=== PATIENT | female | born 1980 | race African-American/Black ===

== ENCOUNTER 2016-08-27 11:18 | Observation (INO) | payer MEDICAID, OTHER ==
[~2016-08-27] VITALS: Ht 165.1 cm; Wt 59.0 kg
[2016-08-27] MEDS ORDERED: KETOROLAC 60 MG/2 ML VIAL IM ONE (12:37)
[2016-08-27] MEDS ORDERED: ONDANSETRON ODT 4 MG TAB ONE (12:37)
[2016-08-27] MEDS ORDERED: ONDANSETRON 4 MG VIAL ONE (13:48)
[2016-08-27] MEDS ORDERED: OPTIRAY 350 100 ML VIAL HMH IV ONE (15:07)
[2016-08-27] MEDS: KCL CR 10 MEQ CAP PO ONE ×2 (15:10→20:54)
[2016-08-27] MEDS ORDERED: SALINE FLUSH 10 ML FLUSH PRN (15:10)
[2016-08-27] MEDS ORDERED: ACETAMINOPHEN 500 MG TAB PO PRN (15:10)
[2016-08-27] MEDS ORDERED: OXYCODONE 5 MG TAB PO PRN (15:10)
[2016-08-27] MEDS ORDERED: ONDANSETRON 4 MG VIAL IV PUSH PRN (15:10)
[2016-08-27 17:25] VITALS: Ht 165.1 cm; Wt 59.0 kg
[2016-08-27 17:26] VITALS: BP_SYST 180; RESP 20; TEMP 99.1
[2016-08-27 20:06] VITALS: BP_SYST 158; BP_SYST 161; RESP 16; TEMP 98.6
[2016-08-27 20:10] VITALS: BP_SYST 158
[2016-08-27] MEDS ORDERED: MISSING DOSE XX ONE ×2 (20:25→21:55)
[2016-08-27 20:55] VITALS: BP_SYST 158
[2016-08-27] MEDS: SALINE FLUSH 10 ML FLUSH SCH (20:56)
[2016-08-27] MEDS ORDERED: FAMOTIDINE 20 MG TAB PO SCH (21:00)
[2016-08-27] MEDS: KETOROLAC 15 MG/ML VIAL IV PRN (22:37)
[2016-08-27 23:26] VITALS: BP_SYST 152; RESP 18; TEMP 98.8
[2016-08-28 03:28] VITALS: BP_SYST 139; BP_SYST 152; BP_SYST 157; RESP 14; TEMP 99
[2016-08-28] MEDS ORDERED: MISSING DOSE XX ONE ×2 (03:55→12:35)
[2016-08-28] MEDS: KETOROLAC 15 MG/ML VIAL IV PRN ×2 (04:12→13:12)
[2016-08-28] MEDS ORDERED: SODIUM CHLORIDE 0.9% FLUSH BAG 500 ML IV SCH (06:00)
[2016-08-28 07:35] VITALS: BP_SYST 156; RESP 16; TEMP 98.9
[2016-08-28] MEDS: SALINE FLUSH 10 ML FLUSH SCH (08:03)
[2016-08-28 08:23] VITALS: BP_SYST 162; BP_SYST 166; BP_SYST 178
[2016-08-28] MEDS ORDERED: LISINOPRIL 10 MG TAB PO SCH (10:05)
[2016-08-28] MEDS ORDERED: IRON SUCROSE COMPLEX 500 MG in SODIUM CHLORIDE 0.9% 250 ML IV SCH (10:05)
[2016-08-28 10:57] VITALS: BP_SYST 180; RESP 16; TEMP 98.9
[2016-08-28 17:03] VITALS: BP_SYST 180; RESP 16; TEMP 98.9
== END 2016-08-28 16:25 | disposition home or self-care (01) ==
LOC: ENRESERVTM → ENRESERVDT → ER 11:18 → EMR 15:06 → PCU2 16:17 → 4THE 17:31
PROVIDERS: ADMIT Internal Medicine; ATTEND Internal Medicine
DX: S06.0X1A Concussion with loss of consciousness of 30 minutes or less, initial encounter (principal); S00.03XA Contusion of scalp, initial encounter; Y92.009 Unspecified place in unspecified non-institutional (private) residence as the place of occurrence of the external cause; D50.9 Iron deficiency anemia, unspecified; S20.212A Contusion of left front wall of thorax, initial encounter; E87.6 Hypokalemia; R55 Syncope and collapse; G44.309 Post-traumatic headache, unspecified, not intractable; W10.9XXA Fall (on) (from) unspecified stairs and steps, initial encounter; I10 Essential (primary) hypertension
CPT/HCPCS: 36415; 70450; 71260; 74177; 80048; 80053; 80307; 80320; 81003; 82607; 82746; 83540; 83735; 84439; 84443; 84466; 84703; 85025; 93005; 93306; 96372; 96374